=== PATIENT | male | born 1960 | race African-American/Black ===

== ENCOUNTER 2021-09-13 09:14 | Emergency (ER) | payer OTHER, SELFPAY ==
--- NOTE | ~2021-09-13 | XR_ITS ---
EXAMINATION: XR CHEST CLINICAL INFORMATION: Chest pain, shortness of breath. COMPARISON: None TECHNIQUE: Frontal view of the chest was obtained. FINDINGS: No significant abnormality is noted involving the heart, lungs, mediastinum, bony thorax or soft tissues. XR/XR chest 1V IMPRESSION: No acute cardiopulmonary process.
[2021-09-13 09:17] VITALS: BP 149/88; PULSE 83; RESP 18; TEMP 36.2; O2SAT 97; BMI 28.0
--- NOTE | 2021-09-13 09:21 | ECG_ITS ---
Test Reason : cp Blood Pressure : / mmHG Vent. Rate : 083 BPM Atrial Rate : 083 BPM P-R Int : 128 ms QRS Dur : 094 ms QT Int : 374 ms P-R-T Axes : 064 009 037 degrees QTc Int : 439 ms Sinus rhythm with marked sinus arrhythmia Otherwise normal ECG No previous ECGs available Referred By: Generic ED Physician Electronically Signed By:KENZIE SEO
[2021-09-13 09:33] LABS: MANUAL DIFF FLAG NO
[2021-09-13 09:35] LABS: Basophils Percent Auto 0.4 % (0-2); Eosinophils Absolute Auto 0.1 X10*3/uL (0.0-0.4); Eosinophils Percent Auto 1.4 % (0-4); Hematocrit 42.7 % (42.0-52.0); Hemoglobin 14.2 g/dl (14.0-18.0); Imm Gran Abs Auto 0.01 X10*3/uL (0.00-0.03); Imm Gran Pct Auto 0.2 % (0.0-0.4); Lymphocytes Absolute Auto 2.6 X10*3/uL (1.2-4.9); Lymphocytes Percent Auto 51.9 % (20-40); Mean Corpuscular HGB Conc 33.3 g/dl (31.0-36.0); Mean Corpuscular Volume 87.1 fL (80.0-98.0); Monocytes Absolute Auto 0.6 X10*3/uL (0.1-1.2); Monocytes Percent Auto 11.6 % (2-11); Neutrophils Absolute Auto 1.7 x10*3/uL (2.0-8.3); Neutrophils Percent Auto 34.5 % (45-73); Platelet Count 172 X10*3/uL (160-400); Red Cell Distribution Width 14.4 % (11.0-16.0)
[2021-09-13 09:51] LABS: COVID-19 Test Negative (Negative); IDNOW Serial# 16C4AD1C
[2021-09-13 09:53] LABS: Anion Gap 18 (12-20); Blood Urea Nitrogen 16 mg/dL (9-16); Calcium 8.6 mg/dL (8.4-10.2); Carbon Dioxide 24 mmol/L (22-29); Chloride 105 mmol/L (96-108); Creatinine Clr Calc Pharmacy 79.8; Estimated Glomerular Filt Rate > 60; Glucose Random 116 mg/dL (60-115); Potassium 4.1 mmol/L (3.3-5.1); Sodium 143 mmol/L (135-145)
[2021-09-13 09:54] LABS: Troponin-I High Sensitivity 6.8 ng/L (<3.5-35.0)
--- NOTE | 2021-09-13 16:17 | ED_ITS ---
HPI - Chest Pain General Chief Complaint: Chest Pain Stated Complaint: Chest pain/SOB Time Seen by Provider: 09/13/21 16:17 Source: patient Mode of arrival: ambulatory Limitations: no limitations History of Present Illness HPI narrative: Patient colic drinks about 4 5 times a week last drink was last night comes here as he needs some labs to go to detox he has a bed available at [facility]. Also complained of mild chest pain and shortness of breath off and on for long time none on arrival also patient needs his medication for blood pressure which he ran out for long time Related Data Home Medications Medication Instructions Recorded Confirmed clonazepam 2 mg tablet 2 mg PO BEDTIME 09/13/21 09/13/21 fluoxetine 40 mg capsule 40 mg PO DAILY 09/13/21 09/13/21 glimepiride 4 mg tablet 4 mg PO DAILY 09/13/21 09/13/21 hydroxyzine HCl 25 mg tablet 25 mg PO TID PRN Itching 09/13/21 09/13/21 lisinopril 20 mg tablet 20 mg PO BID 09/13/21 09/13/21 metformin 1,000 mg tablet 1,000 mg PO BID 09/13/21 09/13/21 Allergies Allergy/AdvReac Type Severity Reaction Status Date / Time No Known Allergies Allergy Verified 09/13/21 09:20 [No Known Allergies*] Review of Systems Review of Systems: Yes all other systems are reviewed and are negative [facility] Social History Social History Alcohol intake: current Patient Tobacco Use Status: Current everyday Tobacco user Use of substances other than those prescribed or required for medical reasons: Yes Substance Use Frequency Other:: HX OF SUBSTANCE USE/COCAINE/ETOH/OXYCODOE Advance Directives: No Advance Directives Information Provided: Yes Physical Exam Vital Signs: Vital Signs: Last Vital Signs Temp 97.8 F 09/14/21 00:00 Pulse 64 09/14/21 00:00 Resp 16 09/14/21 00:00 BP 154/77 H 09/14/21 00:00 Pulse Ox 97 09/14/21 00:00 O2 Del Method 09/14/21 00:00 BMI result Body Mass Index 28.0 Appearance: Alert. Oriented X3. No acute distress. ENT: Pharynx normal. Oral Mucosa moist Neck: Normal inspection. Neck supple. CVS: Normal heart rate and rhythm. Pulses normal. Respiratory: No respiratory distress. Equal air entry bilateral, no wheezing/rales/rhonchi Abdomen: Soft and nontender. Bowel sounds are present, no mass palpable, no CVA tenderness Skin: Skin warm and dry. Normal skin color. Normal skin turgor. Extremities: No lower extremity edema. No calf tenderness Neuro: Oriented X 3. No motor deficit. MDM - Chest Pain MDM Narrative Medical decision making narrative: patient medically clear for inpatient detox placement but there is no place to put him last night will keep patient in the ER for placement in the morning as patient does not have any p Lab Data Attestation: I reviewed the patient's lab results. Result diagrams: 09/13/21 09:09/13/21 09:29 Labs: Lab Results 09/13/21 09/13/21 09/13/21 Range/Units 09: 09:29 09:29 WBC 5.0 (4.8-10.8) X10*3/uL RBC 4.90 (4.60-5.80) X10*6/uL Hgb 14.2 (14.0-18.0) g/dl Hct 42.7 (42.0-52.0) % MCV 87.1 (80.0-98.0) fL MCH 29.0 (27.0-33.0) pg MCHC 33.3 (31.0-36.0) g/dl RDW 14.4 (11.0-16.0) % Plt Count 172 (160-400) X10*3/uL MPV 10.0 (9.4-12.4) fL Immature Gran % (Auto) 0.2 (0.0-0.4) % Neut % (Auto) 34.5 L (45-73) % Lymph % (Auto) 51.9 H (20-40) % [place] % (Auto) 11.6 H (2-11) % Eos % (Auto) 1.4 (0-4) % Baso % (Auto) 0.4 (0-2) % Lymph # (Auto) 2.6 (1.2-4.9) X10*3/uL [place] # (Auto) 0.6 (0.1-1.2) X10*3/uL Eos # (Auto) 0.1 (0.0-0.4) X10*3/uL Baso # (Auto) 0.0 (0.0-0.2) X10*3/uL Abs Immat Gran (auto) 0.01 (0.00-0.03) X10*3/uL Absolute Neuts (auto) 1.7 L (2.0-8.3) x10*3/uL Absolute Nucleated RBC 0.000 (0.0-0.012) X10*3/uL Nucleated RBC % (auto) 0.0 (0.0-0.2) /100WBC Sodium 143 (135-145) mmol/L Potassium 4.1 (3.3-5.1) mmol/L Chloride 105 (96-108) mmol/L Carbon Dioxide 24 (22-29) mmol/L Anion Gap 18 (12-20) BUN 16 (9-16) mg/dL Creatinine 1.07 (0.5-1.4) mg/dL Estim Creat Clear Calc 79.8 Estimated GFR > 60 Random Glucose 116 H (60-115) mg/dL Calcium 8.6 (8.4-10.2) mg/dL Troponin I High Sens 6.8 (<3.5-35.0) ng/L Urine Opiates Screen (Not Detect) Urine Fentanyl Screen (Not Detect) Ur Barbiturates Screen (Not Detect) Ur Phencyclidine Scrn (Not Detect) Ur Amphetamines Screen (Not Detect) U Benzodiazepines Scrn (Not Detect) Urine Cocaine Screen (Not Detect) U Marijuana (THC) Screen (Not Detect) Ethyl Alcohol 150 mg/dL COVID-19 (NGOC) (Negative) COVID-19 Clin Com 09/13/21 09/13/21 Range/Units 09:29 23:45 WBC (4.8-10.8) X10*3/uL RBC (4.60-5.80) X10*6/uL Hgb (14.0-18.0) g/dl Hct (42.0-52.0) % MCV (80.0-98.0) fL MCH (27.0-33.0) pg MCHC (31.0-36.0) g/dl RDW (11.0-16.0) % Plt Count (160-400) X10*3/uL MPV (9.4-12.4) fL Immature Gran % (Auto) (0.0-0.4) % Neut % (Auto) (45-73) % Lymph % (Auto) (20-40) % [place] % (Auto) (2-11) % Eos % (Auto) (0-4) % Baso % (Auto) (0-2) % Lymph # (Auto) (1.2-4.9) X10*3/uL [place] # (Auto) (0.1-1.2) X10*3/uL Eos # (Auto) (0.0-0.4) X10*3/uL Baso # (Auto) (0.0-0.2) X10*3/uL Abs Immat Gran (auto) (0.00-0.03) X10*3/uL Absolute Neuts (auto) (2.0-8.3) x10*3/uL Absolute Nucleated RBC (0.0-0.012) X10*3/uL Nucleated RBC % (auto) (0.0-0.2) /100WBC Sodium (135-145) mmol/L Potassium (3.3-5.1) mmol/L Chloride (96-108) mmol/L Carbon Dioxide (22-29) mmol/L Anion Gap (12-20) BUN (9-16) mg/dL Creatinine (0.5-1.4) mg/dL Estim Creat Clear Calc Estimated GFR Random Glucose (60-115) mg/dL Calcium (8.4-10.2) mg/dL Troponin I High Sens (<3.5-35.0) ng/L Urine Opiates Screen Not Detected (Not Detect) Urine Fentanyl Screen Not Detected (Not Detect) Ur Barbiturates Screen Not Detected (Not Detect) Ur Phencyclidine Scrn Not Detected (Not Detect) Ur Amphetamines Screen Not Detected (Not Detect) U Benzodiazepines Scrn Not Detected (Not Detect) Urine Cocaine Screen POSITIVE H (Not Detect) U Marijuana (THC) Screen Not Detected (Not Detect) Ethyl Alcohol mg/dL COVID-19 (NGOC) Negative (Negative) COVID-19 Clin Com See Note ECG Data ECG #1: Attestation: I personally reviewed and interpreted this ECG as follows: Interpretation: Normal sinus rhythm with PACs normal interval normal axis no acute ST-T changes no acute ischemia Discharge Plan Discharge Clinical Impression: Alcohol dependence, Atypical chest pain Patient Disposition: Still a Patient Instructions: Cocaine Abuse (ED), Abuse of Alcohol (ED), Hypertension (ED) Additional Instructions: medically cleared for detox placement you need to take blood pressure medicine daily Prescriptions: No Action fluoxetine 40 mg Capsule 40 mg PO DAILY lisinopril 20 mg Tablet 20 mg PO BID metformin 1,000 mg Tablet 1,000 mg PO BID glimepiride 4 mg Tablet 4 mg PO DAILY clonazepam 2 mg Tablet 2 mg PO BEDTIME Rx Instructions: administer 30 minutes before bedtime hydroxyzine HCl 25 mg Tablet 25 mg PO TID PRN (Reason: Itching)
[2021-09-13] MEDS: lisinopriL 20 MG TABLET PO (17:32)
[2021-09-13 17:33] VITALS: BP 193/109; PULSE 66; RESP 18; O2SAT 98
--- NOTE | 2021-09-13 17:35 | PC.NURSE ---
Pt reports a headache but denies tremors and other withdrawal sx. [facility] needs [facility]. this rn to contact care team for transport
[2021-09-13 17:54] LABS: Ethanol 150 mg/dL
[2021-09-13 18:16] VITALS: BP 186/100; PULSE 88; RESP 16
--- NOTE | 2021-09-13 18:16 | MHC.CARE ---
CARE team contacted [facility] to confirm that the pt has a detox bed. He does not have a detox bed and they aren't able to accommodate him this evening. They asked for medical to be faxed to them and to have the pt call to do a phone intake and schedule an admission for Monday. CARE team will fax medical and have the job coach meet with the pt to assist with contacting the facility.
[2021-09-13 19:17] VITALS: BP 179/93; PULSE 67; RESP 18
[2021-09-13 21:46] VITALS: BP 180/94; PULSE 68; RESP 16; O2SAT 98
--- NOTE | 2021-09-13 22:00 | MHC.RECOVSUP ---
? Reason for consult:ETOH o? Current location:ED2? o? Identified substance use concern:? -? Seeking ATS (detox) ?? Intervention: o? ATS bed search started/completed/in process ? Plan: o? [facility]? [facility]? ? Additional information:RC met with PT continued bed search, located a bed at [facility], sent referral with [facility]. Waited for intake nurse to follow up, never heard from her.
--- NOTE | 2021-09-13 22:36 | PHA.MEDREC ---
Pharmacy Consult ? Medication Reconciliation Pharmacy has completed the medication reconciliation. SPOKE WITH PT. HE HAD ALL HIS RX BOTTLES WITH HIM
--- NOTE | 2021-09-13 22:39 | PC.NURSE ---
recovery support team to see pt. pt agreeable to go to detox bed in [place] tomorrow. pt states he has no where to go tonight, states he is homeless. pt in no distress, resting in bed.
[2021-09-13 23:45] VITALS: PULSE 67; RESP 18; O2SAT 99
[2021-09-13] MEDS: clonazePAM 1 MG TABLET 2 MG PO (23:45)
[2021-09-14] VITALS: BP 154/77; PULSE 64; RESP 16; TEMP 36.6; O2SAT 97
[2021-09-14 00:15] LABS: Amphetamine Screen Urine Not Detected (Not Detect); Barbiturates, Urine Not Detected (Not Detect); Benzodiazepines Screen Urine Not Detected (Not Detect); Cannabinoid Screen Urine Not Detected (Not Detect); Cocaine Screen Urine POSITIVE (Not Detect); Fentanyl, urine Not Detected (Not Detect); Opiate Screen Urine Not Detected (Not Detect); Phencyclidine Screen Urine Not Detected (Not Detect)
[2021-09-14 06:00] VITALS: BP 171/100; PULSE 65; RESP 16; TEMP 36.7; O2SAT 97
[2021-09-14] MEDS: metFORMIN HCl 1,000 MG TABLET 1000 MG PO (08:30)
[2021-09-14] MEDS: glipiZIDE 10 MG TABLET PO (08:30)
[2021-09-14] MEDS: FLUoxetine HCl 20 MG CAPSULE 40 MG PO (08:30)
[2021-09-14] MEDS: lisinopriL 20 MG TABLET PO (08:30)
[2021-09-14 08:32] VITALS: BP 188/106; PULSE 86; RESP 16; O2SAT 98
--- NOTE | 2021-09-14 08:42 | MHC.RECOVRN ---
[facility] currently reviewing referral, awaiting return phone call.
--- NOTE | 2021-09-14 08:57 | PC.NURSE ---
Pt alert and oriented x4. Respirations even and unlabored. Pt awaiting detox bed resting comfortably.
[2021-09-14 10:29] VITALS: BP 171/101; PULSE 71; RESP 14; TEMP 36.3; O2SAT 97
--- NOTE | 2021-09-14 11:41 | MHC.RECOVRN ---
Pt accepted to [facility] in [place], will be transported via [employer].
[2021-09-14 12:00] VITALS: BP 186/98; PULSE 68; RESP 16; TEMP 36.4; O2SAT 97
== END 2021-09-14 12:10 | disposition other institution (70) ==
PROVIDERS: Emergency Provider Internal Medicine; PCP Internal Medicine
DX: F10.20 Alcohol dependence, uncomplicated (principal); Y90.6 Blood alcohol level of 120-199 mg/100 ml; R07.89 Other chest pain; K02.9 Dental caries, unspecified; Z20.822 Contact with and (suspected) exposure to COVID-19; F17.200 Nicotine dependence, unspecified, uncomplicated
CPT/HCPCS: 36415; 71045; 80048; 80307; 82077; 84484; 85025; 87635; 93005; 99285